=== PATIENT | female | born 1970 | race African-American/Black ===

== ENCOUNTER 2019-04-30 12:17 | Emergency (ER) | payer OTHER ==
[~2019-04-30] VITALS: Ht 162.6 cm; Wt 104.3 kg
[2019-04-30] MEDS ORDERED: cloNIDine HCL 0.1 MG TAB PO ONE ×2 (12:30)
[2019-04-30 13:00] LABS: Basophils # (auto) 0 uL; Eosinophils # (auto) 0.1 uL; Hemoglobin 9.2 g/dL (12.2-16.2); Lymphocytes # (auto) 1.5 uL; Monocytes # (auto) 0.5 uL
[2019-04-30 13:01] LABS: Eosinophils % (auto) 1.3 % (0.0-7.0); Hematocrit 30.7 % (36.0-46.0); Mean Corpuscular Hemoglobin 20.5 pg (28.0-32.0); Mean Corpuscular Hgb Conc. 30.1 g/dL (32.0-36.0); Mean Corpuscular Volume 68.1 fL (80.0-100.0); Monocytes % (auto) 10.1 % (0.0-12.0); Neutrophils # (auto) 2.7 uL; Neutrophils % (auto) 55.6 % (37.0-80.0); Platelet Count (auto) 302 10^3/uL (140-450); Red Blood Cells 4.51 10^6/uL (4.0-5.20); Red Cell Distribution Width 20.1 % (11.8-14.3); White Blood Cell 4.8 10^3/uL (4.4-10.8)
[2019-04-30 13:15] LABS: INR < 0.93 (0.9-1.15); Partial Thromboplastin Time 25.3 sec (23.64-32.05)
[2019-04-30 13:25] LABS: Alanine Aminotransferase 15 U/L (13-56); Albumin 3.8 g/dL (3.4-5.0); Anion Gap 6 (5-15); Aspartate Aminotransferase 11 U/L (15-37); Blood Urea Nitrogen 11 mg/dL (7-18); Calcium 8.8 mg/dL (8.5-10.1); Carbon Dioxide 27 mmol/L (21-32); Chloride 109 mmol/L (98-107); GFR African American 77 mL/min; GFR Non-African American 63 mL/min; Glucose 87 mg/dL (74-106); Sodium 142 mmol/L (136-145)
[2019-04-30 13:40] LABS: Alkaline Phosphatase 97 U/L (45-117); Bilirubin, Total 0.4 mg/dL (0.2-1.0); Total Protein 7.7 g/dL (6.4-8.2)
[2019-04-30 14:13] VITALS: BP 146/81
== END 2019-04-30 14:21 | disposition home or self-care (01) ==
LOC: ER 12:20
DX: R04.0 Epistaxis (principal)
CPT/HCPCS: 30901; 36415; 80053; 85025; 85610; 85730